=== PATIENT | female | born 1990 | race Caucasian/White ===

== ENCOUNTER → 2016-12-26 | Outpatient (CLI) | payer OTHER ==
[~2016-12-26] MED LIST: BUPROPION XL300 M1 PO; SERTRALINE HCL100 M1 PO
--- NOTE | ~2016-12-26 | CR97 ---
[facility] A Service of [facility] RADIOLOGY TEXT RESULTS PATIENT: YAS BANKS LOCATION: [facility] : 91 UNIT #: [id number] AGE: [address]: Johnathan Dozier III, MD SEX: F ORDER DR: [id number] [place], [place] [address] [id number] O MR#: [id number] Acc #: [id number] NAME: YAS BANKS : 1990 SEX: F STUDY DATE/TIME: 12/26/2016 8:39 UNIT: [facility] ROOM: STUDY DESCRIPTION: CR Esophagram Attending Physician: Johnathan Dozier III, M.D. Referring Physician: Johnathan Dozier III, M.D. Ordering Physician: Johnathan Dozier III, M.D. Primary Care Physician: Chandana Medina M.D. MEDICAL IMAGING REPORT This report is preliminary unless electronic signature is present EXAM Fluoroscopic esophagram. DATE OF EXAM 12/26/[address] of the abdomen and pelvis dated January 17, 2013. INDICATIONS 26-year-old female with a obesity and occasional dyspnea. Preoperative evaluation prior to gastric Lap-Band surgery. Evaluate for possible hiatal hernia. FINDINGS A total of 10 images were obtained. Total fluoro time was 0.2 minutes. Imaging of the esophagus was performed in the left posterior oblique positioning at 3 frames per second. Cholecystectomy clips are noted. There is normal peristaltic activity of the esophagus. There is no evidence of extrinsic mass effect. No focal esophageal lesion or stricture. No evidence of hiatal hernia. No gastroesophageal reflux. Normal position of the stomach, which is normal in appearance. IMPRESSION 1. Normal esophagram. 2. No evidence of hiatal hernia or gastroesophageal reflux. 3. Prior cholecystectomy. Dictated by... Justin Westbrook M.D. [facility] A Service [facility] RADIOLOGY TEXT RESULTS PATIENT: YAS BANKS LOCATION: [facility] : 91 UNIT #: [id number] AGE: [address]: Johnathan Dozier III, MD SEX: F ORDER DR: THIS IS AN ELECTRONICALLY VERIFIED REPORT Justin Westbrook M.D. at 12/28/2016 7:13 PM Dave TD: 12/26/2016 18:08 JOB #: [id number] MEDICAL IMAGING REPORT COPY
--- NOTE | ~2016-12-26 | CR63 ---
[facility] A Service of [facility] & [facility] RADIOLOGY TEXT RESULTS PATIENT: YAS BANKS LOCATION: [facility] : 91 UNIT #: [id number] AGE: [address]: Johnathan Dozier III, MD SEX: F ORDER DR: [id number] [facility] [address] [place], [place] [address] [id number] O MR#: [id number] Acc #: [id number] NAME: YAS BANKS : 1990 SEX: F STUDY DATE/TIME: 12/26/2016 8:17 UNIT: [facility] ROOM: STUDY DESCRIPTION: CR Chest 2 View Attending Physician: Johnathan Dozier III, M.D. Referring Physician: Johnathan Dozier III, M.D. Ordering Physician: Johnathan Dozier III, M.D. Primary Care Physician: Chandana Medina M.D. MEDICAL IMAGING REPORT This report is preliminary unless electronic signature is present EXAM PA and lateral chest. INDICATIONS 26-year-old female preop for LAP-band surgery. COMPARISON No comparisons. FINDINGS The lungs are well expanded and clear. Heart size is normal. The visualized osseous structures are unremarkable. IMPRESSION Negative chest. Dictated by... Mio Segovia M.D. THIS IS AN ELECTRONICALLY VERIFIED REPORT Mio Segovia M.D. at 12/26/2016 5:05 PM ARS/gz TD: 12/26/2016 11:05 JOB #: [id number] MEDICAL IMAGING REPORT COPY
--- NOTE | ~2016-12-26 | EKG ---
PATIENT: YAS BANKS UNIT #: [id number] Ventricular Rate: 86 BPM Atrial Rate: 86 BPM P-R Interval: 138 ms QRS Duration: 90 ms Q-T Interval: 380 ms QTC Calculation(Bezet): 454 ms P Overton: 34 degrees Calculated R Overton: 34 degrees Calculated T Overton: 29 degrees Diagnosis Line: Normal sinus rhythm Diagnosis Line: Normal ECG Diagnosis Line: No previous ECGs available Diagnosis Line: Confirmed by JANAE STAUFFER MD ([id number]) on Diagnosis Line: 12/28/2016 11:58:56 PM INTERPRETING MD: XIOMY GRIJALVA
[2016-12-26 09:36] LABS: HEMATOCRIT 40.7 % (35.0-45.0); HEMOGLOBIN 13.6 gm/dL (12.0-16.0); MEAN CELL VOLUME 79.2 FL (83-96); MEAN CORPUSCULAR HEMOGLOBIN 26.4 PG (28-34); MEAN CORPUSCULAR HGB CONC 33.4 g/dL (30-36); MEAN PLATELET VOLUME 8.5 FL (6.5-11.5); RED BLOOD COUNT 5.14 X10e (3.90-5.30); RED CELL DISTRIBUTION WIDTH 14.4 % (11.0-15.5); WHITE BLOOD COUNT 7.8 X10e3 (4.0-10.5)
[2016-12-26 10:48] LABS: ALBUMIN SERUM 3.8 g/dL (3.5-5.0); ALKALINE PHOSPHATASE 98 U/L (32-92); ALT (SGPT) 23 U/L (10-40); AST (SGOT) 20 U/L (10-42); BILIRUBIN,TOTAL 0.2 mg/dL (0.2-2.0); BLOOD UREA NITROGEN 12 mg/dL (9-23); CALCIUM SERUM 9.8 mg/dL (8.4-10.2); CARBON DIOXIDE 26 mmol/L (22-31); CHLORIDE 103 mmol/L (100-111); CHOLESTEROL 165 mg/dL (0-200); CREATININE SERUM 0.6 mg/dL (0.6-1.4); GLOM FILT RATE Estimated ABOVE60 mL/min (>60); GLUCOSE FASTING 82 mg/dL (70-110); HDL CHOLESTEROL 48 mg/dL (35-95); LDL CHOLESTEROL 96 mg/dL (-130); LDL/HDL RATIO 2 RATIO (0-4); SODIUM 137 mmol/L (135-145); TRIGLYCERIDES 104 mg/dL (10-160)
== END | disposition home or self-care (01) ==
LOC: CRAD 08:02
PROVIDERS: Surgery
DX: Z01.818 Encounter for other preprocedural examination (principal); E66.9 Obesity, unspecified; Z90.49 Acquired absence of other specified parts of digestive tract
CPT/HCPCS: 36415; 71020; 74220; 80053; 80061; 84443; 85027; 93005; C1781

== ENCOUNTER → 2017-01-07 | Day surgery (SDC) | payer OTHER ==
--- NOTE | ~2017-01-07 | CR7 ---
[facility] A Service of [facility] RADIOLOGY TEXT RESULTS PATIENT: YAS BANKS [id number] 91 UNIT #: [id number] AGE: [address]: Johnathan Dozier III, MD SEX: F ORDER DR: [id number] [facility] [address] [place], [place] [address] [id number] O MR#: [id number] Acc #: [id number] NAME: YAS BANKS : 1990 SEX: F STUDY DATE/TIME: 01/07/2017 10:51 UNIT: [facility] ROOM: STUDY DESCRIPTION: CR Abdomen Single AP View Attending Physician: Johnathan Dozier III, M.D. Ordering Physician: Johnathan Dozier III, M.D. Primary Care Physician: Chandana Medina M.D. MEDICAL IMAGING REPORT This report is preliminary unless electronic signature is present EXAM KUB HISTORY Postop Lap-Band surgery. TECHNIQUE A single view of the abdomen was obtained. FINDINGS Postoperative changes of Lap-Band surgery are noted. The angle of the band with respect to the long axis of the spine is 57 degrees. No destruction or kinking of the catheter is noted. IMPRESSION Satisfactory postoperative appearance. STAT * RESULT Dictated by... Mina Barriga M.D. THIS IS AN ELECTRONICALLY VERIFIED REPORT Mina Barriga M.D. at 01/08/2017 10:45 AM LANETTE/ilsa TD: 01/07/2017 11:23 JOB #: [id number] MEDICAL IMAGING REPORT [facility] A Service of [facility] RADIOLOGY TEXT RESULTS PATIENT: YAS BANKS [id number] 91 UNIT #: [id number] AGE: [address]: Johnathan Dozier III, MD SEX: F ORDER DR: Page 1 of 1 COPY
--- NOTE | ~2017-01-07 | OR ---
Unit #: [id number] #: [id number] Patient: YAS BANKS [id number] [facility] [address]. [place], [place] [address] [id number] O MR#: [id number] NAME: YAS BANKS ROOM: Date of Procedure: 01/07/2017 Admission Date: 01/07/2017 Surgeon: Johnathan Dozier III, M.D. : 1990 Attending Physician: Johnathan Dozier III, M.D. Primary Care Physician: Chandana Medina M.D. OPERATIVE REPORT PREOPERATIVE DIAGNOSIS Chronic morbid obesity. POSTOPERATIVE DIAGNOSIS Chronic morbid obesity. SECONDARY DIAGNOSIS Anterior paraesophageal hernia. PROCEDURE PERFORMED Laparoscopic adjustable gastric banding (AP standard with regular port) and laparoscopic paraesophageal hernia repair. REHAB TRAINER Corby Whitt M.D. SPECIMENS None. COMPLICATIONS None apparent. ESTIMATED BLOOD LOSS Minimal. INDICATIONS FOR PROCEDURE This is a 26-year-old lady, who has chronic morbid obesity with a BMI of 56 and associated comorbidities of reflux. She has been through the bariatric program at [facility] and understands risks and benefits of the procedure. DESCRIPTION OF PROCEDURE After consent was obtained, including the risks and benefits of slippage, erosion, port dysfunction, and possible failure of weight loss due to noncompliance, the patient was taken to the operating room and placed in the supine position. General anesthetic was administered and the abdomen was prepped and draped in standard surgical fashion. I began by making a 2 cm incision just above and to the left of the umbilicus. I used a Visiport to enter the peritoneal cavity without any difficulty. C02 pneumoperitoneum was then established. Next, I placed a 5 mm port in the right upper quadrant, a 5 mm Wellington liver retractor in Unit #: [id number] #: [id number] Patient: YAS BANKS the subxiphoid region to provide exposure of the gastroesophageal junction. Next, a 10 mm port was placed in the left upper quadrant and a 5 mm port was placed in the left lateral subcostal region. I began by performing an examination of the GE junction to evaluate for a hiatal hernia. We then scored the peritoneal attachments overlying the angle of His. I then opened up the clear space in the gastrohepatic ligament, and then using 2 blunt graspers, I identified the small fat pad crossing over the right crura. I swept the fat anterior to the crura off the crura and using the pars flaccida, I created a retrogastric tunnel where the blunt grasper exited at the angle of His. Once I had made this tunnel safely, I then inserted an Allergan AP band into the abdominal cavity. This adjustable gastric band was then place around the upper part of the stomach and fastened and buckled anteriorly. We then tacked the lateral fundus over the band to the proximal pouch with 2 interrupted 0 Ethibond sutures. I then used a third stitch to imbricate the excess anterior stomach by going from the lesser curvature up towards where the last stitch was placed. We then had excellent hemostasis. I removed the Wellington liver retractor. We then removed the port tubing through the initial port incision. The rest of the ports were removed, and the pneumoperitoneum was released. I then left a small tail on the tubing. We then attached the port to the excess band tubing. We placed a piece of Prolene mesh along the back side of the port and used a Prolene stitch to anchor this mesh in place. We then trimmed the excess mesh so that just a small footprint of mesh was in place behind the port. I then inserted the tubing back into the abdominal cavity, and we placed the port into a small pocket that was made just inferior to where our initial port incision was made. The mesh was in direct contact with the fascia, and this will scar in place to hold the port in place. We then injected all the port sites with 0.25% plain Marcaine, and I reapproximated the skin edges with interrupted 4-0 Vicryl subcuticular sutures. Steri-strips were then applied. The patient tolerated the procedure without any problems and returned to the recovery room in stable condition. After the exposure of the GE junction, the patient was noted to have a small to medium size anterior paraesophageal hernia. I scored the phrenoesophageal ligament, reduced the hernia defect and after identifying both the right and left crura, I reapproximated the defect with an interrupted 0 Ethibond [id number] suture. I then proceeded with the case as listed above. Dictated by... Johnathan Dozier III, M.D. VCL/renata TD: 01/08/2017 08:00 JOB #: [id number] Unit #: [id number] #: [id number] Patient: YAS BANKS OPERATIVE REPORT Page 1 of 1 X Johnathan Dozier III, MD X PROCEDURE OPERATIVE NOTE
== END | disposition home or self-care (01) ==
LOC: CSUR 06:14
DX: E66.01 Morbid (severe) obesity due to excess calories (principal); Z68.43 Body mass index [BMI] 50.0-59.9, adult; K44.9 Diaphragmatic hernia without obstruction or gangrene; K21.9 Gastro-esophageal reflux disease without esophagitis; J45.909 Unspecified asthma, uncomplicated; K58.9 Irritable bowel syndrome, unspecified; F41.9 Anxiety disorder, unspecified; F32.9 Major depressive disorder, single episode, unspecified
CPT/HCPCS: 74000; 76942; 84703; C1781; J0330; J0690; J1650; J1885; J2250; J2405; J3010

== ENCOUNTER 2017-03-28 11:30 | Emergency (ER) | payer OTHER ==
--- NOTE | ~2017-03-28 | CR21 ---
[facility] A Service of [facility] RADIOLOGY TEXT RESULTS PATIENT: YAS BANKS LOCATION: [facility] : 89 UNIT #: [id number] AGE: [address]: Jessika Lobato APRN SEX: F ORDER DR: [id number] [facility] [address] [place], [place] [address] [id number] MR#: [id number] Acc #: [id number] NAME: YAS BANKS : 1990 SEX: F STUDY DATE/TIME: 03/28/2017 12:20 UNIT: [facility] ROOM: STUDY DESCRIPTION: CR Ankle Min 3 Views Rt Attending Physician: Jessika Lobato A.P.R.N. Ordering Physician: Ed Keenan Ann M.D. Primary Care Physician: Chandana Medina M.D. MEDICAL IMAGING REPORT This report is preliminary unless electronic signature is present EXAM Right ankle, 3 views. HISTORY Right ankle pain. Tripped and fell last night. Ankle swelling. FINDINGS Three views are submitted. There is soft tissue swelling. It is quite marked over the lateral malleolus. Underlying bony elements are intact with no fractures seen. CONCLUSION Marked soft tissue swelling laterally. No fractures or joint effusion. Dictated by... Dada Min M.D. THIS IS AN ELECTRONICALLY VERIFIED REPORT Dada Min M.D. at 03/29/2017 9:17 AM Janet TD: 03/28/2017 18:00 JOB #: [id number] MEDICAL IMAGING REPORT Page 1 of 1 COPY
== END 2017-03-28 13:03 | disposition home or self-care (01) ==
LOC: CFTX 11:30 → CED 11:30 → CFTX 13:01
DX: S93.401A Sprain of unspecified ligament of right ankle, initial encounter (principal); W10.9XXA Fall (on) (from) unspecified stairs and steps, initial encounter; Y92.009 Unspecified place in unspecified non-institutional (private) residence as the place of occurrence of the external cause
CPT/HCPCS: 73610; 99283